=== PATIENT | female | born 1945 | race Caucasian/White ===

== ENCOUNTER 2021-07-28 17:46 | Inpatient (IN) ==
[2021-07-28] MEDS ORDERED: Furosemide 20 MG TABLET PO PRN (18:22)
[2021-07-28] MEDS ORDERED: Nitroglycerin 0.4 MG TAB.SUBL SL PRN (18:22)
[2021-07-28] MEDS: Apixaban 5 MG TABLET PO SCH (21:33)
[2021-07-28] MEDS: Melatonin 3 MG TABLET PO SCH (21:33)
[2021-07-28] MEDS: Gabapentin 300 MG CAPSULE PO SCH (21:33)
[2021-07-28] MEDS: Budesonide/Formoterol 160/4.5 1 PUFF INH IH SCH (22:08)
[2021-07-28] MEDS ORDERED: Naloxone 0.4 MG/ML INJ IVP PRN (22:23)
[2021-07-29] MEDS ORDERED: Dextrose Gel 15 GM/37.5 ML TUBE PO PRN ×2 (08:07)
[2021-07-29] MEDS ORDERED: D5% in Water 1,000 ML IVC PRN (08:07)
[2021-07-29] MEDS ORDERED: *HR* Dextrose 50 % in Water (Syg) 50 ML SYRINGE IVP PRN (08:07)
[2021-07-29] MEDS: Apixaban 5 MG TABLET PO SCH ×2 (08:13→20:59)
[2021-07-29] MEDS: Isosorbide MONOnitrate (24 HR) 30 MG TAB.ER.24H PO SCH (08:14)
[2021-07-29] MEDS: Loratadine 10 MG TABLET PO SCH (08:14)
[2021-07-29] MEDS: Gabapentin 300 MG CAPSULE PO SCH ×2 (08:14→21:00)
[2021-07-29] MEDS: carvediloL 6.25 MG TABLET PO SCH ×2 (08:14→17:59)
[2021-07-29] MEDS: Multivit/Ca/Min/Fe/FA 1 TAB TABLET PO SCH (08:14)
[2021-07-29] MEDS: Insulin LISPRO 300 UNITS/3 ML VIAL SUBQ SCH ×4 (08:27→20:53)
[2021-07-29] MEDS: ICOSAPENT ETHYL 1 GM PO SCH ×3 (08:27→21:12)
[2021-07-29] MEDS: (Omega-3/Dha/Epa/Fish Oil [Fish Oil 1,000 Mg Softgel] PO SCH (08:28)
[2021-07-29 09:07] LABS: Basophils % 0.3 %; Eosinophils # 0.1 K/mcL (0.0-0.6); Hemoglobin 7.9 g/dL (11.5-15.4); Immature Granulocytes % 0.7 % (0-4); Lymphocytes # 1.8 K/mcL (0.6-4.6); Lymphocytes % 28.7 %; Mean Corpuscular HGB Conc 32.9 g/dL (31.6-35.5); Mean Corpuscular Hemoglobin 31.5 pg (28.0-33.3); Mean Corpuscular Volume 95.6 fL (83.0-100.0); Monocytes # 0.7 K/mcL (0.0-1.3); Monocytes % 11.4 %; Neutrophils # 3.5 K/mcL (1.6-8.9); Platelet Count 160 K/mcL (140-400); Red Blood Count 2.51 M/mcL (3.82-4.97); Segmented Neutrophils % 56.9 %; White Blood Count 6.1 K/mcL (4.3-11.1)
[2021-07-29 09:21] LABS: BUN/Creatinine Ratio 19 (6-26); Blood Urea Nitrogen 14 mg/dL (8-23); Calcium 7.9 mg/dL (8.6-10.3); Carbon Dioxide 28 mEq/L (23-29); Chloride 104 mEq/L (98-107); Glucose 99 mg/dL (70-105); Osmolality,Calculated 287 (280-300); Potassium 3.6 mEq/L (3.5-5.1); Sodium 138 mEq/L (136-145); eGFR For African Americans > 60 (> 60); eGFR For Non-African Americans > 60 (> 60)
[2021-07-29] MEDS: Budesonide/Formoterol 160/4.5 1 PUFF INH IH SCH ×2 (10:56→22:19)
[2021-07-29] MEDS: Tiotropium 10 INH DOSE IH SCH (10:57)
[2021-07-29] MEDS: Mag Hydrox/Al Hydrox/Simeth 30 ML UDC PO PRN (20:59)
[2021-07-29] MEDS: Acetaminophen 325 MG TABLET PO PRN (20:59)
[2021-07-29] MEDS: Melatonin 3 MG TABLET PO SCH (21:00)
[2021-07-29] MEDS: hydrOXYzine pamoate 25 MG CAPSULE PO PRN (21:00)
[2021-07-30] MEDS: Tiotropium 10 INH DOSE IH SCH (10:07)
[2021-07-30] MEDS: Budesonide/Formoterol 160/4.5 1 PUFF INH IH SCH ×2 (10:08→22:25)
[2021-07-30] MEDS: Insulin LISPRO 300 UNITS/3 ML VIAL SUBQ SCH ×4 (11:09→21:51)
[2021-07-30] MEDS: Loratadine 10 MG TABLET PO SCH (11:34)
[2021-07-30] MEDS: carvediloL 6.25 MG TABLET PO SCH ×2 (11:34→16:23)
[2021-07-30] MEDS: Isosorbide MONOnitrate (24 HR) 30 MG TAB.ER.24H PO SCH (11:34)
[2021-07-30] MEDS: Apixaban 5 MG TABLET PO SCH ×2 (11:34→21:58)
[2021-07-30] MEDS: Gabapentin 300 MG CAPSULE PO SCH ×2 (11:34→21:58)
[2021-07-30] MEDS: Multivit/Ca/Min/Fe/FA 1 TAB TABLET PO SCH (11:34)
[2021-07-30] MEDS: (Omega-3/Dha/Epa/Fish Oil [Fish Oil 1,000 Mg Softgel] PO SCH (11:35)
[2021-07-30] MEDS: ICOSAPENT ETHYL 1 GM PO SCH ×2 (11:35→21:51)
[2021-07-30] MEDS: Mag Hydrox/Al Hydrox/Simeth 30 ML UDC PO PRN (16:23)
[2021-07-30] MEDS: Acetaminophen 325 MG TABLET PO PRN (21:58)
[2021-07-30] MEDS: Melatonin 3 MG TABLET PO SCH (21:59)
[2021-07-31] MEDS: Insulin LISPRO 300 UNITS/3 ML VIAL SUBQ SCH ×4 (08:56→21:45)
[2021-07-31] MEDS: Gabapentin 300 MG CAPSULE PO SCH ×2 (08:56→19:29)
[2021-07-31] MEDS: Multivit/Ca/Min/Fe/FA 1 TAB TABLET PO SCH (08:56)
[2021-07-31] MEDS: ICOSAPENT ETHYL 1 GM PO SCH ×2 (08:57→19:36)
[2021-07-31] MEDS: Apixaban 5 MG TABLET PO SCH ×2 (08:57→19:29)
[2021-07-31] MEDS: Isosorbide MONOnitrate (24 HR) 30 MG TAB.ER.24H PO SCH (08:57)
[2021-07-31] MEDS: Loratadine 10 MG TABLET PO SCH (08:57)
[2021-07-31] MEDS: carvediloL 6.25 MG TABLET PO SCH ×2 (08:57→16:51)
[2021-07-31] MEDS: (Omega-3/Dha/Epa/Fish Oil [Fish Oil 1,000 Mg Softgel] PO SCH (08:58)
[2021-07-31] MEDS: Tiotropium 10 INH DOSE IH SCH (10:38)
[2021-07-31] MEDS: Budesonide/Formoterol 160/4.5 1 PUFF INH IH SCH ×2 (10:39→22:26)
[2021-07-31] MEDS: Mag Hydrox/Al Hydrox/Simeth 30 ML UDC PO PRN (18:37)
[2021-07-31] MEDS: Melatonin 3 MG TABLET PO SCH (19:29)
[2021-07-31] MEDS: Acetaminophen 325 MG TABLET PO PRN (19:29)
[2021-08-01] MEDS: Loratadine 10 MG TABLET PO SCH (07:46)
[2021-08-01] MEDS: Insulin LISPRO 300 UNITS/3 ML VIAL SUBQ SCH ×4 (07:46→20:33)
[2021-08-01] MEDS: Multivit/Ca/Min/Fe/FA 1 TAB TABLET PO SCH (07:46)
[2021-08-01] MEDS: Gabapentin 300 MG CAPSULE PO SCH ×2 (07:46→20:33)
[2021-08-01] MEDS: carvediloL 6.25 MG TABLET PO SCH ×2 (07:47→16:58)
[2021-08-01] MEDS: Apixaban 5 MG TABLET PO SCH ×2 (07:47→20:33)
[2021-08-01] MEDS: Isosorbide MONOnitrate (24 HR) 30 MG TAB.ER.24H PO SCH (07:47)
[2021-08-01] MEDS: (Omega-3/Dha/Epa/Fish Oil [Fish Oil 1,000 Mg Softgel] PO SCH (07:55)
[2021-08-01] MEDS: ICOSAPENT ETHYL 1 GM PO SCH ×2 (07:55→20:33)
[2021-08-01] MEDS: Budesonide/Formoterol 160/4.5 1 PUFF INH IH SCH ×2 (10:40→21:55)
[2021-08-01] MEDS: Tiotropium 10 INH DOSE IH SCH (10:40)
[2021-08-01] MEDS: Melatonin 3 MG TABLET PO SCH (20:33)
[2021-08-02] MEDS: hydrOXYzine pamoate 25 MG CAPSULE PO PRN (02:15)
[2021-08-02] MEDS: Insulin LISPRO 300 UNITS/3 ML VIAL SUBQ SCH ×4 (08:10→21:23)
[2021-08-02] MEDS: ICOSAPENT ETHYL 1 GM PO SCH (08:46)
[2021-08-02] MEDS: (Omega-3/Dha/Epa/Fish Oil [Fish Oil 1,000 Mg Softgel] PO SCH (08:47)
[2021-08-02] MEDS: Multivit/Ca/Min/Fe/FA 1 TAB TABLET PO SCH (08:55)
[2021-08-02] MEDS: Loratadine 10 MG TABLET PO SCH (08:55)
[2021-08-02] MEDS: Apixaban 5 MG TABLET PO SCH ×2 (08:55→21:22)
[2021-08-02] MEDS: Isosorbide MONOnitrate (24 HR) 30 MG TAB.ER.24H PO SCH (08:55)
[2021-08-02] MEDS: carvediloL 6.25 MG TABLET PO SCH ×2 (08:55→17:21)
[2021-08-02] MEDS: Gabapentin 300 MG CAPSULE PO SCH ×2 (08:55→21:22)
[2021-08-02] MEDS: Tiotropium 10 INH DOSE IH SCH (09:19)
[2021-08-02] MEDS: Budesonide/Formoterol 160/4.5 1 PUFF INH IH SCH ×2 (09:19→21:57)
[2021-08-02 09:25] VITALS: RESP 18
[2021-08-02 20:50] VITALS: BP 98/59; PULSE 56; TEMP 98.5; O2SAT 98
[2021-08-03] MEDS ORDERED: Ergocalciferol (VIT D2) 50,000 UNIT (1.25MG) CAP PO SCH (09:00)
== END 2021-08-02 21:40 | DRG 189 ==
LOC: INPPIK 20:12
PROVIDERS: ADMIT Family Medicine; ATTEND Family Medicine